=== PATIENT | male | born 1935 | race Caucasian/White ===

== ENCOUNTER → 2020-07-18 10:55 | Outpatient (BNVA) | payer MEDICARE, SELFPAY | PROVIDERS: PCP Internal Medicine; Visit Provider Internal Medicine Pulmonary Disease | DX: C34.91 Malignant neoplasm of unspecified part of right bronchus or lung (principal); C34.92 Malignant neoplasm of unspecified part of left bronchus or lung; Z87.891 Personal history of nicotine dependence | CPT/HCPCS: 99213 ==

== ENCOUNTER 2020-07-20 08:45 | Day surgery (SDC) | payer MEDICARE, SELFPAY ==
[2020-07-19 12:47] VITALS: BMI 29.0
--- NOTE | 2020-07-19 13:42 | P.CONAN_ITS ---
Documented by User: Zenaida Rizo 07/19/20 13:47 HPI - Anesthesia Eval Consult details Narrative: 85yo M for EBUS for tissue sampling: Small Cell lung cancer New onset A fib, see by cardiology, no OAC d/t bleeding risk/hemoptysis. ECHO pending. [facility] Past Medical History Medical History Anemia Atrial fibrillation Atrial fibrillation by electrocardiogram Small cell lung cancer Family History Family History Father Heart attack Other Family hx of ALS (amyotrophic lateral sclerosis) Social History Social History Smoking Status: Former smoker Use of substances other than those prescribed or required for medical reasons: Unknown Advance Directives: No Advance Directives Information Provided: Yes Meds Allergies Allergy/AdvReac Type Severity Reaction Status Date / Time No Known Allergies Allergy Verified 07/18/20 11:06 [No Known Allergies*] Home Medications Medication Instructions Recorded Confirmed Type ferrous sulfate 324 mg PO BID 07/11/20 07/12/20 History ondansetron HCl [Zofran] 8 mg PO Q8H PRN 07/11/20 07/12/20 History albuterol sulfate 90 mcg/actuation 2 puff INHALATION Q4H PRN 07/18/20 History aerosol inhaler mupirocin 2 % topical ointment TOPICAL BID 07/18/20 History Exam Exam Date and Time: July 19, 2020 1342 Height,Weight and Vital Signs: Height 5 ft 8 in Weight 86.636 kg Pertinent Lab Results Pertinent Lab Results: Laboratory Tests 07/11/20 07/11/20 09:18 09:19 WBC 9.5 Hgb 10.7 L Hct 34.1 L Plt Count 243 Sodium 142 Potassium 3.8 Chloride 106 Carbon Dioxide 25 BUN 15 Creatinine 0.93 Narrative Narrative: EKG 07/12/20: atrial fibrillation at 98/Min; PVC versus aberrant conduction. Assessment and Plan Assessment Anesthesia Assessment: Chart Reviewed Documented by User: Alis Walker 07/20/20 10:14 PMFSH Past Medical History Medical History Anemia Atrial fibrillation Atrial fibrillation by electrocardiogram Small cell lung cancer Family History Family History Father Heart attack Other Family hx of ALS (amyotrophic lateral sclerosis) Social History Social History Smoking Status: Former smoker Use of substances other than those prescribed or required for medical reasons: Unknown Advance Directives: No Advance Directives Information Provided: Yes Meds Allergies Allergy/AdvReac Type Severity Reaction Status Date / Time No Known Allergies Allergy Verified 07/18/20 11:06 [No Known Allergies*] Home Medications Medication Instructions Recorded Confirmed Type ferrous sulfate 324 mg PO BID 07/11/20 07/12/20 History ondansetron HCl [Zofran] 8 mg PO Q8H PRN 07/11/20 07/12/20 History albuterol sulfate 90 mcg/actuation 2 puff INHALATION Q4H PRN 07/18/20 History aerosol inhaler mupirocin 2 % topical ointment TOPICAL BID 07/18/20 History Exam Airway Mallampati Class: II TM Dist: >3cm Neck ROM: Limited Denture: Upper and Lower Assessment and Plan Assessment Anesthesia Assessment: Anesthesia Plan Discussed and Chart Reviewed Final Anesthetic Review ASA Class: III Final Preanesthetic Review: No Changes in Pt Med Stat, Meds/Allgs Chart Reviewed, Consent Obtained/Reviewed and Anes Risks/Benef Reviewed Patient Risk: Intermediate Procedure Risk: Intermediate Assessment/Block/Sedation in SS: Assess/Block/Sedation-SS Anesthetic Plan Anesthetic Plan: GA Disposition: Standard PACU
[2020-07-20] VITALS (7 sets, daily range): BP systolic 110–131; BP diastolic 60–87; PULSE 90–118; RESP 16–18; TEMP 36.1–36.7; O2SAT 95–100
--- NOTE | 2020-07-20 09:44 | MHC.SHP ---
Pre-Procedural Eval Section A The patient is an INPATIENT: No The History & Physical has been completed within 30 days and I have reviewed it.: Yes Section B Chief Complaint: Lung Cancer Allergies: Allergies Allergy/AdvReac Type Severity Reaction Status Date / Time No Known Allergies Allergy Verified 07/18/20 11:06 [No Known Allergies*] Plan Diagnosis/Plan: Unchanged Patient has been examined and remains a candidate for the planned procedure
--- NOTE | 2020-07-20 10:17 | PC.NURSE ---
PT ASKING FOR RIGHT CHEST PORT TO BE ACCESSED. HAD BEEN PUT IN [address] HAMMOND AND OK'D TO ACCESS. RT CHEST PORT ACCESSED WITHOUT DIFFICULTIES AND ANESTHESIA AWARE.
--- NOTE | 2020-07-20 10:42 | HO.ANESPROP2 ---
[facility] Past Medical History Medical History Anemia Atrial fibrillation Atrial fibrillation by electrocardiogram Small cell lung cancer Family History Family History Father Heart attack Other Family hx of ALS (amyotrophic lateral sclerosis) Social History Social History Smoking Status: Former smoker Use of substances other than those prescribed or required for medical reasons: Unknown Advance Directives: No Advance Directives Information Provided: Yes Meds Allergies Allergy/AdvReac Type Severity Reaction Status Date / Time No Known Allergies Allergy Verified 07/18/20 11:06 [No Known Allergies*] Home Medications Medication Instructions Recorded Confirmed Type ferrous sulfate 324 mg PO BID 07/11/20 07/12/20 History ondansetron HCl [Zofran] 8 mg PO Q8H PRN 07/11/20 07/12/20 History albuterol sulfate 90 mcg/actuation 2 puff INHALATION Q4H PRN 07/18/20 History aerosol inhaler mupirocin 2 % topical ointment TOPICAL BID 07/18/20 History Exam Exam Date and Time: July 20, 2020 1042 Height,Weight and Vital Signs: Height 5 ft 8 in Weight 86.636 kg Last Vital Signs Temp 98.1 F 07/20/20 09:34 Pulse 118 H 07/20/20 09:34 Resp 18 07/20/20 09:34 BP 131/76 07/20/20 09:34 Pulse Ox 99 07/20/20 09:34 Airway Mallampati Class: II TM Dist: >3cm Neck ROM: Full Denture: Upper and Lower Assessment and Plan Assessment Anesthesia Assessment: Anesthesia Plan Discussed and Chart Reviewed Final Anesthetic Review NPO: Yes ASA Class: III Final Preanesthetic Review: No Changes in Pt Med Stat, Meds/Allgs Chart Reviewed, Consent Obtained/Reviewed and Anes Risks/Benef Reviewed Patient Risk: Intermediate Procedure Risk: Low Assessment/Block/Sedation in SS: Assess/Block/Sedation-SS Anesthetic Plan Anesthetic Plan: GA Disposition: Standard PACU
--- NOTE | 2020-07-20 11:29 | W.PM.OPN ---
Operative Note Operative Note Narrative: Preoperative diagnosis: lung cancer Postoperative diagnosis: same Procedure: Flexible bronchoscopy performed via endotracheal tube with patient intubated for procedure under general anesthesia. Bronchoscope advanced through the tracheobronchial tree with identification of right upper lobe bronchus obstruction with heart secretions and malignant looking tissue. Endobronchial forceps biopsies sample obtained at the obstruction side with some bleeding. Bleeding controlled with cold saline lavage. After that bronchoscope was changed to endobronchial ultrasound bronchoscope and subcarinal lymph node ( station 7) was sampled with EBUS needle with the samples noted to have lymphoid and malignant looking tissue on on-site cytology. After obtaining EBUS guided lymph node samples, endoscopic ultrasound altered scope was switched again to conventional bronchoscope for tracheobronchial tree surveillance with no active bleeding noted. Biopsy samples sent for further pathological examination. Patient tolerated the procedure well and was transferred to PACU after the procedure.
--- NOTE | 2020-07-20 12:46 | HO.POSTANES ---
Post Anesthesia Evaluation Post Anesthesia Evaluation Vital Signs: Vital Signs Temp Pulse Resp BP Pulse Ox 07/20/20 12:10 97.2 F 90 16 126/66 95 07/20/20 11:56 95 16 117/60 100 07/20/20 11:41 105 H 16 114/69 99 07/20/20 11:36 105 H 17 120/68 98 07/20/20 11:31 105 H 17 116/64 96 07/20/20 11:26 97.0 F 108 H 16 110/87 97 07/20/20 09:34 98.1 F 118 H 18 131/76 99 Anesthesia: General (tiva) Mental Status: Awake Pain Control: Satisfactory Nausea/Vomiting: None Hydration: Adequate Anesthesia-Related Issues: No Anes. Related Issues
== END 2020-07-20 12:51 | disposition home or self-care (01) ==
PROVIDERS: PCP Internal Medicine; Visit Provider Internal Medicine Pulmonary Disease
PROC: (CPT 31628; principal; 2020-07-20 10:30)
DX: C34.91 Malignant neoplasm of unspecified part of right bronchus or lung (principal); C77.1 Secondary and unspecified malignant neoplasm of intrathoracic lymph nodes; D64.9 Anemia, unspecified; I48.91 Unspecified atrial fibrillation; Z79.899 Other long term (current) drug therapy; Z82.49 Family history of ischemic heart disease and other diseases of the circulatory system; Z82.0 Family history of epilepsy and other diseases of the nervous system; Z87.891 Personal history of nicotine dependence
CPT/HCPCS: 31628; 31652; 88172; 88173; 88177; 88305; 88341; 88342; J1642; J3010

== ENCOUNTER → 2020-07-24 13:53 | Outpatient (REF) | payer MEDICARE, SELFPAY ==
--- NOTE | 2020-07-24 13:56 | ECG_ITS ---
Hook-up date: 2020-07-24 14:05:00 Duration: 24:22:00 Test Indications: Unspecified Atrial Fibrillation Medications: 524801 QRS complexes 1691 Ventricular ectopics which represent 1 % of total QRS comp. * Supraventricular ectopics which represent % of total QRS comp. * Paced QRS complexs which represent % of total QRS comp. VENTRICULAR ECTOPY 1685 Isolated 9 Bigeminal Cycles 92 Couplets 16 Runs 57 Beats in Runs 6 Beats LONGEST at 206 BPM at 16:20:51 2020-07-24 3 Beats FASTEST at 333 BPM at 12:20:28 2020-07-25 SUPRAVENTRICULAR ECTOPY * Isolated * Couplets * Runs * Beats in Runs * Beats LONGEST at * BPM at :: -- * Beats FASTEST at * BPM at :: -- HEART RATES 73 MIN at 00:08:04 2020-07-25 110 AVG 214 MAX at 14:21:04 2020-07-24 LONGEST RR 1.2160 secs at 20:35:25 2020-07-24 S-T LEVELS Channel 1 - 128 mm at 14:05:00 2020-07-24 - 128 mm at 14:05:00 2020-07-24 Channel 2 - 128 mm at 14:05:00 2020-07-24 - 128 mm at 14:05:00 2020-07-24 Channel 3 - 128 mm at 03:32:41 -- - 128 mm at 03:32:41 Underlying rhythm is atrial fibrillation; Average ventricular rate 110/min (range 73-214/min); Frequent rapid ventricular rate with atrial fibrillation; Very brief runs of ventricular ectopy vs aberrantly conducted beats; Patient diary not available for review. Referred By: Erika Yepez Overread By: ERIKA YEPEZ
== END ==
LOC: HO.CARD 13:53
PROVIDERS: Visit Provider Internal Medicine
DX: I48.91 Unspecified atrial fibrillation (principal)
CPT/HCPCS: 93225; 93226

== ENCOUNTER → 2020-07-26 14:58 | Outpatient (REF) | payer MEDICARE, SELFPAY ==
--- NOTE | 2020-07-26 15:03 | CA_ITS ---
Transthoracic Echocardiogram Patient (Last, First, Middle): Raul Martinez J Gender: Male Date of : 1935 Age: 85 Procedure Date: 07/26/2020 Procedure Type: Transthoracic Echocardiogram Location: OP Height: 172.72 cm Weight: 86.18 kg BSA: 2.00 m2 Heart Rate: bpm BP: 138 / 70 mmHg Consulting Psychiatrist: Referring MD: Mg Bailey MD Symptoms: afib Study Quality: Good ECG Rhythm: Atrial Fibrillation Conclusions: - Normal left ventricular size and systolic function. - Normal right ventricular cavity size and systolic function. - The left atrium is mildly dilated. - There is moderate mitral annular calcification. There is mild mitral valve regurgitation. There is no mitral valve stenosis. The calculated mitral valve area by pressure half time is 3.93 cm2. - Normal right atrial pressure. There is no evidence of pulmonary hypertension. - There is mild dilatation of the ascending aorta. Findings Left Ventricle Normal left ventricular size and systolic function. There is mildly increased left ventricular wall thickness. The visually estimated ejection fraction is between 60-65%. There is no evidence of regional wall motion abnormalities. Diastolic function is indeterminate on the basis of available data. Right Ventricle Normal right ventricular cavity size and systolic function. Atria The left atrium is mildly dilated. There is no evidence of interatrial shunt by color Doppler. Aortic Valve There is a normal trileaflet aortic valve. There is mild calcification of the aortic valve. There is no aortic valve stenosis. There is no aortic valve regurgitation. Mitral Valve There is moderate mitral annular calcification. There is mild mitral valve regurgitation. There is no mitral valve stenosis. The calculated mitral valve area by pressure half time is 3.93 cm2. Pulmonic Valve The pulmonic valve is likely normal. Tricuspid Valve Normal tricuspid valve structure and function. There is trace tricuspid valve regurgitation. Normal right atrial pressure. There is no evidence of pulmonary hypertension. Great Vessels There is mild dilatation of the ascending aorta. The visualized portions of the pulmonary artery and branches are normal. Venous The inferior vena cava is normal in size and collapses greater than 50% with inspiration. Pericardium/Pleural There is no evidence of pericardial effusion. Prior Study Comparison No prior study available for comparison. Measurements 2D Linear Measurements IVSd: 1.30 0.6-0.9/0.6-1.0 cm LVIDd: 4.39 3.9-5.3/4.2-5.9 cm LVIDd Index: 2.20 2.4-3.2/2.2-3.1 cm/m2 LVIDs: 2.94 2.0-3.6 cm LVPWd: 1.33 0.7-1.1 cm Ao Root: 3.30 2.1-3.5 cm LA Diam: 3.90 2.7-3.8/3.0-4.0 cm LAIDs Index: 1.95 1.5-2.3 cm/m2 LV Mass: 271.80 67-162/88-224 g LV Mass Index: 135.90 43-95/49-115 g/m2 LVOT Diam: 2.00 3.0+(-)1.3 cm Mitral Valve MV VTI: 0.36 MV Pk Camron: 1.90 MV Mn Camron: 1.05 MV Pk Grad: 14.00 MV Mn Grad: 6.00 MV Pk E: 1.51 MV Decel Time: 190.00 E'Lateral: 10.30 E'Medial: 10.70 E/E' Med: 14.10 E/E' Lat: 14.70 PHT: 56.00 MVA PHT: 3.93 MVA Continuity: 1.34 Decel Gilliam: 7.93 Aortic Valve AoV Pk Camron: 1.32 AoV Mn Camron: 0.95 AoV VTI: 0.30 AoV Pk Grad: 7.00 Aov Mn Grad: 4.00 TR[place]AD Cont.VTI: 1.62 LVOT LVOT Pk Camron: 0.96 LVOT Mn Camron: 0.74 LVOT VTI: 0.15 LVOT Pk Grad: 4.00 LVOT Mn Grad: 2.00 LVOT Diam: 2.00 LVOT Area: 3.14 Diastolic Function MV Pk E: 1.51 E'Medial: 10.70 E/E' Med: 14.10 E' Laterial: 10.30 E/E' Lat: 14.70 Tricuspid Valve TR Pk Camron: 2.29 TR Pk Grad: 21.00 RVSP: 24.00 Great Vessels Aorta Ao Root-2D: 3.30 2.0-3.7 cm Ao Asc: 3.60 2.1-3.4 cm Pulmonary Valve PV Pk Camron: 0.76 Peak PV Grad: 2.00 Updated in Other Vendor System with Status of Final Rich Cooney MD electronically signed on 07/27/2020 2:13:10 PM with status of Final
== END ==
LOC: HO.CARD 14:58
PROVIDERS: Visit Provider Internal Medicine
DX: I48.91 Unspecified atrial fibrillation (principal)
CPT/HCPCS: 93306

== ENCOUNTER → 2020-07-28 10:15 | Outpatient (BNVA) | payer MEDICARE, SELFPAY | PROVIDERS: PCP Internal Medicine; Visit Provider Nurse Practitioner Family | DX: I89.1 Lymphangitis (principal); C34.90 Malignant neoplasm of unspecified part of unspecified bronchus or lung; Z79.899 Other long term (current) drug therapy; Z87.891 Personal history of nicotine dependence | CPT/HCPCS: 99214 ==

== ENCOUNTER → 2020-08-11 10:16 | Outpatient (BNVA) | payer MEDICARE, SELFPAY | PROVIDERS: PCP Internal Medicine; Referring Provider Internal Medicine; Visit Provider Nurse Practitioner Family | DX: I48.91 Unspecified atrial fibrillation (principal); C34.90 Malignant neoplasm of unspecified part of unspecified bronchus or lung | CPT/HCPCS: 99212 ==

== ENCOUNTER 2020-08-30 11:49 | Outpatient (REF) | payer MEDICARE, SELFPAY ==
--- NOTE | 2020-08-30 11:51 | CT_ITS ---
EXAMINATION: CT CHEST WITH CONTRAST CLINICAL INFORMATION: Lung cancer. Assess response to treatment. COMPARISON: Previous chest CT scans most recent June 2020 TECHNIQUE: Multidetector volumetric CT imaging of the chest was obtained after the administration of 65 mL of Omnipaque 350 intravenous contrast without immediate adverse reactions. Axial MIP volume rendering provided. Sagittal and coronal reformatted images were obtained. This CT examination was performed using dose optimization techniques as appropriate, variously including the following: *Automated exposure control *Adjustment of mA and/or kV according to patient size (this includes techniques or standardized protocols for targeted exams where dose is matched to indication/reason for exam; i.e. extremities or head) *Use of iterative reconstruction technique DLP: 147 mGy-cm FINDINGS: LUNGS: There is evidence of emphysema. There is volume loss of the right upper lobe. There is interval decrease in masslike consolidation in the apex of the right upper lobe. More inferior areas of consolidation in the right upper lobe appear decreased as well. There is again question of central mass in the right upper lobe in the right upper lobe bronchus. This area does not appear appreciably changed. The central lobulated mass in the left lung involving the left upper and left lower lobes appears increased in size. This measures 7.5 x 11 cm in transverse and longitudinal dimension coronal reconstructed image 48 compared to 6.2 x 8.8 cm coronal reconstructed image 47. This measures 9 cm in AP dimension sagittal reconstructed image 26 compared to 7.8 cm coronal reconstructed image 32. It is again lobulated in shape and involves the left upper and left lower lobes. MEDIASTINUM: There are enlarged mediastinal lymph nodes that appear increased in size. Largest lymph node is a left paratracheal lymph node that measures 3.2 x 4.2 cm compared to 2.8 x 3.2 cm. There are enlarged subcarinal lymph nodes that measures 3 x 3.5 cm compared to 2.8 x 3.2 cm in the midline, 2.6 x 3.6 cm compared to 2 x 2.4 cm on the right and 2 x 2.4 cm compared to 1.2 x 2 cm on the left. There is bilateral hilar adenopathy that appears increased. Largest left hilar lymph node measures 2.1 x 2.6 cm coronal reconstructed image 48 compared to 1.3 x 2.1 cm coronal reconstructed image 46. Largest left hilar lymph node measures 1.3 x 1.6 cm compared to 1 x 1.2 cm. The heart does not appear enlarged. There is coronary artery calcification. There is atherosclerotic disease of the aorta. There is no pericardial effusion. The thyroid gland is unremarkable. There is a right jugular port with tip projecting over the SVC. PLEURA: There are bilateral pleural effusions the right pleural effusion is small and appears slightly decreased from previous exam. The left pleural effusion is moderate to large and appears increased from previous exam. AXILLA: The enlarged right axillary lymph node appears increased in size and measures 3.1 x 4.6 cm compared to 2.3 x 3.7 cm on previous exam. UPPER ABDOMEN: There is probable low-attenuation lesion in the spleen. This measures 2.2 cm axial image 65 series 3 and is increased in size from previous exams. There are multiple small low-attenuation liver lesions. These do not appear appreciably changed. The largest measures 1.3 cm in the central right lobe of the liver with peripheral calcification. It is uncertain whether these represent solid or cystic lesions. OSSEOUS STRUCTURES: There are degenerative changes of the spine. No fracture or bone lesion is seen. CT/CT chest w con IMPRESSION: Interval increase in size in the lobulated central left lung mass involving the left upper and lower lobes interval. Increase in mediastinal and bilateral hilar lymphadenopathy. Masslike consolidation in the right upper lobe appears decreased. The questioned central mass in the right upper lobe bronchus does not appear appreciably changed. Small right pleural effusion decreased from previous exam. Increasing now moderate to large left pleural effusion. Interval increase in right axillary lymph node. Increasing splenic lesion. Stable liver lesions.
[2020-08-30] MEDS: iohexoL 350 MG/ML 100 ML INFUS..BTL 75 ML IV (12:25)
== END 2020-08-30 11:50 | disposition home or self-care (01) ==
LOC: HO.CT 11:49
PROVIDERS: Visit Provider Internal Medicine
DX: C34.90 Malignant neoplasm of unspecified part of unspecified bronchus or lung (principal); I48.91 Unspecified atrial fibrillation
CPT/HCPCS: 71260; 93005; 99212; Q9967

== ENCOUNTER → 2020-09-20 10:06 | Outpatient (BNVA) | payer MEDICARE, SELFPAY | PROVIDERS: PCP Internal Medicine; Visit Provider Nurse Practitioner Family | DX: I48.91 Unspecified atrial fibrillation (principal); C34.90 Malignant neoplasm of unspecified part of unspecified bronchus or lung | CPT/HCPCS: 99212 ==

== ENCOUNTER 2020-09-25 10:00 | Outpatient (RCR) | payer MEDICARE, SELFPAY ==
[2020-07-07 16:28] VITALS: BMI 28.9
[2020-07-11 09:22] LABS: MANUAL DIFF FLAG NO
[2020-07-11 09:34] LABS: Basophils Absolute Auto 0.1 X10*3/uL (0.0-0.2); Basophils Percent Auto 1.3 % (0-2); Eosinophils Absolute Auto 0.1 X10*3/uL (0.0-0.4); Hematocrit 34.1 % (42-52); Hemoglobin 10.7 g/dl (14.0-18.0); Imm Gran Abs Auto 0.11 X10*3/uL (0.00-0.03); Imm Gran Pct Auto 1.2 % (0.0-0.4); Lymphocytes Absolute Auto 1.6 X10*3/uL (1.2-4.9); Mean Corpuscular HGB Conc 31.4 g/dl (31.0-36.0); Mean Corpuscular Hemoglobin 28.5 pg (27.0-33.0); Mean Corpuscular Volume 90.7 fL (80-98); Mean Platelet Volume 8.2 fL (9.4-12.4); Monocytes Absolute Auto 1.2 X10*3/uL (0.1-1.2); Monocytes Percent Auto 12.7 % (2-11); Neutrophils Absolute Auto 6.4 X10*3/uL (2.0-8.3); Neutrophils Percent Auto 66.8 % (45-73); Platelet Count 243 X10*3/uL (160-400); Red Blood Count 3.76 X10*6/uL (4.60-5.80); Red Cell Distribution Width 26.1 % (11.0-16.0); White Blood Count 9.5 X10*3/uL (4.8-10.8)
[2020-07-11 09:37] VITALS: BMI 29.2
[2020-07-11 09:38] VITALS: BP 135/64; PULSE 114; RESP 20; TEMP 36.9; O2SAT 96
[2020-07-11 09:57] LABS: Alanine Aminotransferase 7 U/L (0-40); Albumin Level 3.7 g/dL (3.5-5.0); Alkaline Phosphatase 83 U/L (39-117); Anion Gap 15 (12-20); Aspartate Amino Transferase 10 U/L (5-37); Bilirubin Total 0.4 mg/dL (0.0-1.0); Blood Urea Nitrogen 15 mg/dL (9-16); Calcium 9.1 mg/dL (8.4-10.2); Carbon Dioxide 25 mmol/L (22-29); Chloride 106 mmol/L (96-108); Creatinine Clr Calc Pharmacy 64.6; Estimated Glomerular Filt Rate > 60; Glucose Random 156 mg/dL (60-115); Potassium 3.8 mmol/l (3.3-5.1); Sodium 142 mmol/L (135-145)
[2020-07-11] MEDS: ondansetron HCL/NS 16 MG/50 ML PIGGYBACK 200 MG IV (10:30)
[2020-07-11] MEDS: dexAMETHasone sod phosphate/NS 12 MG/50 ML PIGGYBACK 100 MG IV (10:31)
[2020-07-11] MEDS: Fosaprepitant Dimeglumine 150 MG in 0.9 % Sodium Chloride 145 ML 300 MG IV (11:27)
[2020-07-11] MEDS: Furosemide 20 MG TABLET PO (12:37)
[2020-07-11] MEDS: Atezolizumab 1,200 MG in 0.9 % Sodium Chloride 250 ML 540 MG IV (12:42)
--- NOTE | 2020-07-11 13:00 | MHC.HEMONC ---
20mg po lasix given for bilat leg edema and sob with actively
--- NOTE | 2020-07-11 13:02 | MHC.HEMONC ---
pt seeing cardio next week
[2020-07-12 12:42] VITALS: BP 124/65; PULSE 112; RESP 20; TEMP 36.4; O2SAT 98; BMI 29.5
[2020-07-12] MEDS: dexAMETHasone sod phosphate/NS 12 MG/50 ML PIGGYBACK 100 MG IV (12:56)
[2020-07-13 12:50] VITALS: BP 162/72; PULSE 103; RESP 20; TEMP 36.2; O2SAT 99; BMI 29.5
[2020-07-13] MEDS: ondansetron HCL/NS 16 MG/50 ML PIGGYBACK 200 MG IV (13:17)
[2020-07-13] MEDS: dexAMETHasone sod phosphate/NS 12 MG/50 ML PIGGYBACK 200 MG IV (13:52)
[2020-07-13] MEDS: Heparin Sodium,Porcine Flush 500 UNIT/5 ML SYRINGE IVFLUSH (15:22)
--- NOTE | 2020-07-14 09:46 | MHC.HEMONC ---
RN called patient and informed him of appt with Dr. Carbajal on 07/18/20 at 11am. Pt verbalized understanding and requested RN to call his daughter Willow to inform her as well. RN spoke with Willow and informed her of appt, as well, she verbalized understanding.
[2020-07-14 15:09] VITALS: BMI 29.5
[2020-07-14 15:10] VITALS: BP 146/69; PULSE 96; TEMP 36.2; O2SAT 98
--- NOTE | 2020-07-14 15:17 | MHC.HEMONC ---
Patient here for Neulasta injection today. Tolerated well. Has appt with Dr. Carbajal 07/18/20. Patient and son aware.
[2020-08-01 11:21] VITALS: BP 124/58; PULSE 102; RESP 20; TEMP 36.2; O2SAT 95
[2020-08-01 11:22] VITALS: BMI 28.9
[2020-08-01 11:52] LABS: MANUAL DIFF FLAG NO
[2020-08-01 12:05] LABS: Basophils Absolute Auto 0.1 X10*3/uL (0.0-0.2); Eosinophils Absolute Auto 0.1 X10*3/uL (0.0-0.4); Eosinophils Percent Auto 0.7 % (0-4); Hematocrit 32.9 % (42-52); Hemoglobin 10.3 g/dl (14.0-18.0); Imm Gran Abs Auto 0.09 X10*3/uL (0.00-0.03); Lymphocytes Absolute Auto 1.5 X10*3/uL (1.2-4.9); Lymphocytes Percent Auto 16.4 % (20-40); Mean Corpuscular HGB Conc 31.3 g/dl (31.0-36.0); Mean Corpuscular Hemoglobin 29.3 pg (27.0-33.0); Mean Corpuscular Volume 93.7 fL (80-98); Mean Platelet Volume 8.4 fL (9.4-12.4); Monocytes Absolute Auto 1.4 X10*3/uL (0.1-1.2); Monocytes Percent Auto 15.5 % (2-11); Neutrophils Percent Auto 65.4 % (45-73); Platelet Count 256 X10*3/uL (160-400); Red Blood Count 3.51 X10*6/uL (4.60-5.80); Red Cell Distribution Width 22.6 % (11.0-16.0); White Blood Count 9.2 X10*3/uL (4.8-10.8)
[2020-08-01 12:29] LABS: Alanine Aminotransferase 7 U/L (0-40); Albumin Level 3.5 g/dL (3.5-5.0); Alkaline Phosphatase 78 U/L (39-117); Anion Gap 13 (12-20); Aspartate Amino Transferase 12 U/L (5-37); Bilirubin Total 0.5 mg/dL (0.0-1.0); Blood Urea Nitrogen 9 mg/dL (9-16); Calcium 8.9 mg/dL (8.4-10.2); Carbon Dioxide 26 mmol/L (22-29); Chloride 104 mmol/L (96-108); Creatinine Clr Calc Pharmacy 74.7; Estimated Glomerular Filt Rate > 60; Glucose Random 142 mg/dL (60-115); Potassium 3.7 mmol/l (3.3-5.1); Sodium 139 mmol/L (135-145); Total Protein 6.9 g/dL (6.5-8.0)
[2020-08-01] MEDS: Acetaminophen 325 MG TABLET 650 MG PO (12:46)
[2020-08-01] MEDS: diphenhydrAMINE HCL 25 MG TABLET PO (12:47)
[2020-08-01] MEDS: Heparin Sodium,Porcine Flush 500 UNIT/5 ML SYRINGE IVFLUSH (12:47)
[2020-08-01] MEDS: Famotidine/PF 20 MG/2 ML VIAL IVPUSH (12:47)
[2020-08-01 13:10] LABS: Digoxin < 0.3 ng/mL (0.8-2.0)
[2020-08-01] MEDS: Atezolizumab 1,200 MG in 0.9 % Sodium Chloride 250 ML 540 MG IV (13:31)
[2020-08-01 15:42] LABS: Glucose Urine UA NEG (NEG); Leukocyte Esterase Urine NEG (NEG); Nitrite Urine NEG (NEG); PH 6.5 (5.0-8.0); Urine Blood NEG (NEG); Urine Ketones NEG (NEG); Urine Protein NEG (NEG-TRACE)
[2020-08-01 15:48] LABS: Appearance Urine CLEAR; Color Urine YELLOW
[2020-08-22 10:56] VITALS: BMI 28.3
[2020-08-22 11:16] LABS: MANUAL DIFF FLAG NO
[2020-08-22 11:20] LABS: Basophils Absolute Auto 0.1 X10*3/uL (0.0-0.2); Eosinophils Absolute Auto 1.1 X10*3/uL (0.0-0.4); Eosinophils Percent Auto 13.2 % (0-4); Hematocrit 32.9 % (42-52); Hemoglobin 10.3 g/dl (14.0-18.0); Imm Gran Abs Auto 0.02 X10*3/uL (0.00-0.03); Imm Gran Pct Auto 0.2 % (0.0-0.4); Lymphocytes Absolute Auto 1.5 X10*3/uL (1.2-4.9); Lymphocytes Percent Auto 18.5 % (20-40); Mean Corpuscular HGB Conc 31.3 g/dl (31.0-36.0); Mean Corpuscular Hemoglobin 28.8 pg (27.0-33.0); Mean Corpuscular Volume 91.9 fL (80-98); Mean Platelet Volume 8.4 fL (9.4-12.4); Monocytes Absolute Auto 0.7 X10*3/uL (0.1-1.2); Monocytes Percent Auto 8.3 % (2-11); Neutrophils Absolute Auto 4.8 X10*3/uL (2.0-8.3); Neutrophils Percent Auto 58.8 % (45-73); Platelet Count 174 X10*3/uL (160-400); Red Blood Count 3.58 X10*6/uL (4.60-5.80); Red Cell Distribution Width 15.9 % (11.0-16.0); White Blood Count 8.2 X10*3/uL (4.8-10.8)
[2020-08-22 11:38] VITALS: BP 113/58; PULSE 104; RESP 18; TEMP 36.6; O2SAT 97
[2020-08-22 11:52] LABS: Alanine Aminotransferase 9 U/L (0-40); Albumin Level 3.3 g/dL (3.5-5.0); Alkaline Phosphatase 70 U/L (39-117); Anion Gap 13 (12-20); Aspartate Amino Transferase 14 U/L (5-37); Bilirubin Total 0.5 mg/dL (0.0-1.0); Blood Urea Nitrogen 15 mg/dL (9-16); Calcium 8.8 mg/dL (8.4-10.2); Carbon Dioxide 25 mmol/L (22-29); Chloride 104 mmol/L (96-108); Creatinine Clr Calc Pharmacy 65.1; Estimated Glomerular Filt Rate > 60; Glucose Random 150 mg/dL (60-115); Potassium 3.6 mmol/l (3.3-5.1); Sodium 138 mmol/L (135-145); Total Protein 7.7 g/dL (6.5-8.0)
[2020-08-22] MEDS: diphenhydrAMINE HCL 25 MG TABLET PO (12:09)
[2020-08-22] MEDS: Acetaminophen 325 MG TABLET 650 MG PO (12:10)
[2020-08-22] MEDS: Famotidine/PF 20 MG/2 ML VIAL IVPUSH (12:13)
[2020-08-22] MEDS: Atezolizumab 1,200 MG in 0.9 % Sodium Chloride 250 ML 540 MG IV (12:30)
--- NOTE | 2020-08-22 12:35 | PM.HEMONCPN ---
Medical Summary - Medical Summary Chief complaint: Follow-up and scheduled treatment Medical Summary: Diagnosis: Extensive stage small cell lung cancer April 2020 Right axillary lymph node measuring 3.1 x 2.2 x 3.1 cm was biopsied, pathology-metastatic small-cell carcinoma immunostains for sarah cytokeratin, CD 45, synaptophysin, chromogranin and Ki 67 performed. Flow cytometry polytypic B-cells, Paucicellular limited study. PET-CT performed 04/24/2020 at [facility] revealed large FDG avid left upper lobe lung mass SUV 29.5, multifocal airspace opacity within right upper lobe, abnormal FDG active multiple mediastinal lymph nodes with SUV ranging from 12.6-32.6. Focal increased FDG activity in right axillary lymph node SUV 26.7, abnormal FDG uptake within spleen SUV 16.909. No osseous metastatic disease. MRI brain on 05/08/2020 with contrast was negative for occult brain metastasis. Patient started palliative chemotherapy with Carboplatinum AUC 5+ etoposide and atezolizumab on 05/09/2020. He underwent CT chest with contrast on 07/03/2020 after 3 cycles. This showed decrease in size of left upper lobe mass but increase in size of multifocal right upper lobe mass as well as slight increase in lymphadenopathy. Interval History Interval history: Patient is here for scheduled treatment and follow-up. Overall he is doing about the same. He denies any worsening of his chronic nonproductive cough or baseline exertional shortness of breath. He denies pleuritic chest pain, no fever or chills. He denies diarrhea or change in bowel habits. His appetite is somewhat low but he is eating at least 3 meals a day. He denies any significant weight loss. Review of Systems - Constitutional Reports as per HPI, Reports no additional constitutional complaints - Cardiovascular Reports no additional cardiovascular complaints, Denies fainting, Denies fast heart rate, Denies irregular heart rhythm - Respiratory Reports no additional respiratory complaints - Gastrointestinal Reports no additional gastrointestinal complaints ON LICENSE OF [facility] Medical History: Medical History (Last Reviewed 08/11/20 @ 10:50 by ADELAIDA Spence) Anemia Atrial fibrillation Atrial fibrillation by electrocardiogram Small cell lung cancer Family History: Family History (Last Reviewed 08/11/20 @ 10:50 by ADELAIDA Spence) Father Heart attack Other Family hx of ALS (amyotrophic lateral sclerosis) Smoking status: Former smoker Alcohol intake frequency: does not drink Oncology Screenings - ECOG Performance Status ECOG Performance Status: 1 Home Medications and Allergies Current Medications: Current Medications Generic Name Dose Route Start Last Admin Trade Name Nayeli PRN Reason Stop Dose Admin Acetaminophen 650 mg 08/22/20 00:00 08/22/20 12:10 Acetaminophen 325 Mg Tablet PO 08/22/20 23:59 650 mg ONCE BILL Administration Diphenhydramine HCl 25 mg 08/22/20 00:00 08/22/20 12:09 Diphenhydramine Hcl 25 Mg Tablet PO 08/22/20 23:59 25 mg ONCE BILL Administration Famotidine 20 mg 08/22/20 00:00 08/22/20 12:13 Famotidine/Pf 20 Mg/2 Ml Vial IVPUSH 08/22/20 23:59 20 mg ONCE BILL Administration Heparin Sodium (Porcine) 500 unit 08/22/20 00:00 Heparin Sodium,Porcine Flush 500 Unit/5 Ml Syringe IVFLUSH 08/22/20 23:59 ONCE BILL Ondansetron HCl 16 mg in 50 mls @ 200 mls/hr 07/13/20 13:15 07/13/20 13:32 Zofran IV Infused ONCE BILL Infusion Atezolizumab 1,200 mg/ Sodium 270 mls @ 540 mls/hr 08/22/20 00:00 08/22/20 12:30 Chloride IV 08/22/20 23:59 540 mls/hr ONCE BILL Administration Ondansetron HCl 8 mg 08/22/20 00:00 08/22/20 12:10 Ondansetron Odt 8 Mg Tab.Rapdis TRANSLINGU 08/22/20 23:59 8 mg ONCE BILL Administration Home Medications Medication Instructions Recorded Confirmed Type ferrous sulfate 324 mg PO BID 07/11/20 08/11/20 History Allergies Allergy/AdvReac Type Severity Reaction Status Date / Time No Known Allergies Allergy Verified 07/18/20 11:06 [No Known Allergies*] Exam Vital signs: Vital Signs Temp 97.8 F 08/22/20 11:38 Pulse 104 H 08/22/20 11:38 Resp 18 08/22/20 11:38 BP 113/58 L 08/22/20 11:38 Pulse Ox 97 08/22/20 11:38 Intake & Output 08/21/20 08/22/20 08/22/20 18:59 06:59 18:59 Other: Weight 84.7 kg Weight 84.7 kg Body Mass Index 28.3 - Constitutional Present: no acute distress - Routine HEENT Exam Head: Present: normal inspection Eye: Present: EOMI - Routine Neck Exam Present: full ROM. Absent: lymphadenopathy - Routine Chest/Breast/Axilla Exam Axillae: Present: lymphadenopathy Comments: Single 2 and half to 3 cm soft palpable lymph node in right axilla. - Routine Respiratory Exam Present: CTAB. Absent: rhonchi, wheezes - Routine Cardiovascular Exam Cardiovascular: Present: S1, S2, irregular rhythm - Routine Abdominal Exam Present: normal bowel sounds, soft. Absent: organomegaly Data - Labs CBC & Chem 7: 08/22/20 11:10 08/22/20 11:10 Labs: 07/11/20 00:00 Atezolizumab [Tecentriq] 1,200 mg 0.9 % Sodium Chloride [Ns] 250 ml IV ONCE CARBOplatin [Paraplatin] 460 mg 0.9 % Sodium Chloride 250 ml IV ONCE Etoposide [Vepesid] 200 mg 0.9 % Sodium Chloride PVC Free [NS PVC Free] 500 ml IV ONCE Fosaprepitant Dimeglumine [Emend] 150 mg 0.9 % Sodium Chloride [Ns] 145 ml IV ONCE Heparin Sodium,Porcine Flush 500 unit IVFLUSH ONCE dexAMETHasone sod phosphate/NS [Decadron] 12 mg in 50 ml IV ONCE ondansetron HCL/NS [Zofran] 16 mg in 50 ml IV ONCE 07/11/20 09:18 Complete Blood Count Auto Diff Routine 07/11/20 09:19 Comprehensive Met. Panel Routine 07/11/20 10:00 Fosaprepitant Dimeglumine [Emend] 150 mg 0.9 % Sodium Chloride [Ns] 145 ml IV ONCE 07/11/20 12:01 Furosemide [Lasix] 20 mg PO ONCE ONE 07/12/20 00:00 Etoposide [Vepesid] 200 mg 0.9 % Sodium Chloride PVC Free [NS PVC Free] 500 ml IV ONCE Heparin Sodium,Porcine Flush 500 unit IVFLUSH ONCE 07/12/20 12:33 dexAMETHasone Sod Phosphate/PF [Dexamethasone 10 MG/ML Vial] 12 mg 0.9 % Sodium Chloride [Ns] 50 ml IV ONCE 07/12/20 13:00 dexAMETHasone sod phosphate/NS [Decadron] 12 mg in 50 ml IV ONCE ondansetron HCL [Zofran] 8 mg 0.9 % Sodium Chloride [Ns] 50 ml IVPUSH ONCE ondansetron HCL [Zofran] 8 mg 0.9 % Sodium Chloride [Ns] 50 ml IVPUSH ONCE 07/13/20 00:00 Etoposide [Vepesid] 200 mg 0.9 % Sodium Chloride PVC Free [NS PVC Free] 500 ml IV ONCE Heparin Sodium,Porcine Flush 500 unit IVFLUSH ONCE Pegfilgrastim Onpro [Neulasta Onpro] 6 mg SUBCUT ONCE 07/13/20 13:15 dexAMETHasone sod phosphate/NS [Decadron] 12 mg in 50 ml IV ONCE 07/14/20 15:05 Pegfilgrastim [Neulasta] 6 mg SUBCUT ONCE ONE 08/01/20 00:00 Acetaminophen [Tylenol] 650 mg PO ONCE Atezolizumab [Tecentriq] 1,200 mg 0.9 % Sodium Chloride [Ns] 250 ml IV ONCE Famotidine/PF [Pepcid/PF] 20 mg IVPUSH ONCE Heparin Sodium,Porcine Flush 500 unit IVFLUSH ONCE diphenhydrAMINE HCL [Benadryl] 25 mg PO ONCE ondansetron ODT [Zofran ODT] 8 mg TRANSLINGU ONCE 08/01/20 10:45 Carcinoembryonic Antigen Routine Complete Blood Count Auto Diff Routine Comprehensive Met. Panel Routine Digoxin Routine 08/01/20 15:20 UA and rflx microscopic Routine 08/22/20 11:10 Carcinoembryonic Antigen Routine Complete Blood Count Auto Diff Routine Comprehensive Met. Panel Routine Laboratory Last Values WBC 8.2 X10*3/uL (4.8-10.8) 08/22/20 11:10 RBC 3.58 X10*6/uL (4.60-5.80) L 08/22/20 11:10 Hgb 10.3 g/dl (14.0-18.0) L 08/22/20 11:10 Hct 32.9 % (42-52) L 08/22/20 11:10 MCV 91.9 fL (80-98) 08/22/20 11:10 MCH 28.8 pg (27.0-33.0) 08/22/20 11:10 MCHC 31.3 g/dl (31.0-36.0) 08/22/20 11:10 RDW 15.9 % (11.0-16.0) 08/22/20 11:10 Plt Count 174 X10*3/uL (160-400) D 08/22/20 11:10 MPV 8.4 fL (9.4-12.4) L 08/22/20 11:10 Immature Gran % (Auto) 0.2 % (0.0-0.4) 08/22/20 11:10 Neut % (Auto) 58.8 % (45-73) 08/22/20 11:10 Lymph % (Auto) 18.5 % (20-40) L 08/22/20 11:10 [place] % (Auto) 8.3 % (2-11) 08/22/20 11:10 Eos % (Auto) 13.2 % (0-4) H 08/22/20 11:10 Baso % (Auto) 1.0 % (0-2) 08/22/20 11:10 Neut # (Auto) 6.4 X10*3/uL (2.0-8.3) 07/11/20 09:18 Lymph # (Auto) 1.5 X10*3/uL (1.2-4.9) 08/22/20 11:10 [place] # (Auto) 0.7 X10*3/uL (0.1-1.2) 08/22/20 11:10 Eos # (Auto) 1.1 X10*3/uL (0.0-0.4) H 08/22/20 11:10 Baso # (Auto) 0.1 X10*3/uL (0.0-0.2) 08/22/20 11:10 Abs Immat Gran (auto) 0.02 X10*3/uL (0.00-0.03) 08/22/20 11:10 Absolute Neuts (auto) 4.8 X10*3/uL (2.0-8.3) 08/22/20 11:10 Absolute Nucleated RBC 0.000 X10*3/uL (0.0-0.012) 08/22/20 11:10 Nucleated RBC % (auto) 0.0 /100WBC (0.0-0.2) 08/22/20 11:10 Sodium 138 mmol/L (135-145) 08/22/20 11:10 Potassium 3.6 mmol/l (3.3-5.1) 08/22/20 11:10 Chloride 104 mmol/L (96-108) 08/22/20 11:10 Carbon Dioxide 25 mmol/L (22-29) 08/22/20 11:10 Anion Gap 13 (12-20) 08/22/20 11:10 BUN 15 mg/dL (9-16) D 08/22/20 11:10 Creatinine 0.91 mg/dL (0.5-1.4) 08/22/20 11:10 Estim Creat Clear Calc 65.1 08/22/20 11:10 Estimated GFR > 60 08/22/20 11:10 Random Glucose 150 mg/dL (60-115) H 08/22/20 11:10 Calcium 8.8 mg/dL (8.4-10.2) 08/22/20 11:10 Total Bilirubin 0.5 mg/dL (0.0-1.0) 08/22/20 11:10 AST 14 U/L (5-37) 08/22/20 11:10 ALT 9 U/L (0-40) 08/22/20 11:10 Alkaline Phosphatase 70 U/L (39-117) 08/22/20 11:10 Total Protein 7.7 g/dL (6.5-8.0) 08/22/20 11:10 Albumin 3.3 g/dL (3.5-5.0) L 08/22/20 11:10 Carcinoembryonic Ag 0.80 mg/mL D 08/22/20 11:10 Urine Color YELLOW 08/01/20 15:20 Urine Appearance CLEAR 08/01/20 15:20 Urine pH 6.5 (5.0-8.0) 08/01/20 15:20 Ur Specific [employer] 1.020 (1.005-1.025) 08/01/20 15:20 Urine Protein NEG MG/DL (NEG-TRACE) 08/01/20 15:20 Urine Glucose (UA) NEG MG/DL (NEG) 08/01/20 15:20 Urine Ketones NEG MG/DL (NEG) 08/01/20 15:20 Urine Blood NEG (NEG) 08/01/20 15:20 Urine Nitrite NEG (NEG) 08/01/20 15:20 Ur Leukocyte Esterase NEG (NEG) 08/01/20 15:20 Digoxin < 0.3 ng/mL (0.8-2.0) L 08/01/20 10:45 Progress Note: A/P (1) Small cell carcinoma of lung Status: Acute Assessment and plan: 1. This is a pleasant 84-year-old gentleman with extensive stage small cell lung cancer, PDL1 0. He had a large left upper lobe mass with extensive mediastinal, hilar lymphadenopathy as well as an active focus of metastatic disease in the spleen. PET scan was performed at [facility], all of these lesions are intensely PET avid with SUV ranging from 12-32. MRI brain on 05/08/2020 with contrast was negative for occult brain metastasis. Patient started palliative chemotherapy with Carboplatinum AUC 5+ etoposide and atezolizumab on 05/09/2020. After 3 cycles he had decrease in PET activity in the left upper lobe mass but increase in size of right upper lobe opacity. He therefore saw Dr. Carbajal who did bronchoscopy and biopsy. On 07/20/2020 he underwent bronchoscopy and biopsies of lymph node stations 7 which revealed positivity for malignancy consistent with small cell carcinoma. On bronchoscopy, right upper lobe bronchus was obstructed with malignant looking tissue, samples were obtained. Right upper lobe bronchus biopsy showed inflamed bronchial tissue, no malignancy identified. Clinically he appears to be doing well. Proceed with cycle 6 today which is single agent atezolizumab. Repeat scan in September after cycle 7. - Time Spent With Patient Total time spent is greater than 50% in coordination of care (as documented) at patient's floor/unit and/or counseling patient: 15 - 24 minutes
[2020-08-22] MEDS: Heparin Sodium,Porcine Flush 500 UNIT/5 ML SYRINGE IVFLUSH (13:15)
--- NOTE | 2020-09-05 17:04 | MHC.HEMONC ---
PA FOR ZEPZELCA ( LURBINECTEDIN) NO REQUIRED. Medication will be covered under buy and bill, through medicare part b and supplement plan which should be covered under her medical benefits. Please send orders to pharmacy
--- NOTE | 2020-09-05 17:08 | MHC.HEMONC ---
INSRVICE FOR ZEPZELCA ( LURBINECTEDIN) REQUESTED THRU [place]. WAITING to hear back from drug rep
[2020-09-12 11:11] VITALS: BMI 28.1
[2020-09-12 11:12] VITALS: BP 136/58; PULSE 95; RESP 20; TEMP 36.9; O2SAT 95
--- NOTE | 2020-09-12 16:48 | MHC.HEMONC ---
Pt here with his son for chemo teach (new [facility] protocol with [facility]). I gave them information that was received from Drug [employer] and pt education teaching re: common side effects per same Rep. I am awaiting brochures to be delivered from Company. Pt is aware of common side effects of chemo from previous treatments. He did quite well with treatment in past.
[2020-09-18 10:32] VITALS: BMI 27.8
[2020-09-18 10:33] VITALS: BP 125/60; PULSE 84; RESP 18; TEMP 36.6; O2SAT 96
[2020-09-18 10:56] LABS: MANUAL DIFF FLAG NO
[2020-09-18 11:04] LABS: Basophils Absolute Auto 0.1 X10*3/uL (0.0-0.2); Basophils Percent Auto 0.7 % (0-2); Eosinophils Absolute Auto 0.8 X10*3/uL (0.0-0.4); Eosinophils Percent Auto 10.2 % (0-4); Hematocrit 33.5 % (42-52); Hemoglobin 10.5 g/dl (14.0-18.0); Imm Gran Abs Auto 0.02 X10*3/uL (0.00-0.03); Imm Gran Pct Auto 0.3 % (0.0-0.4); Lymphocytes Absolute Auto 1.5 X10*3/uL (1.2-4.9); Lymphocytes Percent Auto 20.3 % (20-40); Mean Corpuscular HGB Conc 31.3 g/dl (31.0-36.0); Mean Corpuscular Hemoglobin 27.9 pg (27.0-33.0); Mean Corpuscular Volume 88.9 fL (80-98); Mean Platelet Volume 8.5 fL (9.4-12.4); Monocytes Absolute Auto 0.6 X10*3/uL (0.1-1.2); Monocytes Percent Auto 8.6 % (2-11); Neutrophils Absolute Auto 4.5 X10*3/uL (2.0-8.3); Neutrophils Percent Auto 59.9 % (45-73); Platelet Count 236 X10*3/uL (160-400); Red Blood Count 3.77 X10*6/uL (4.60-5.80); White Blood Count 7.5 X10*3/uL (4.8-10.8)
[2020-09-18 11:25] LABS: Alanine Aminotransferase 8 U/L (0-40); Albumin Level 3.2 g/dL (3.5-5.0); Alkaline Phosphatase 67 U/L (39-117); Anion Gap 11 (12-20); Aspartate Amino Transferase 12 U/L (5-37); Bilirubin Total 0.4 mg/dL (0.0-1.0); Blood Urea Nitrogen 13 mg/dL (9-16); Calcium 8.7 mg/dL (8.4-10.2); Carbon Dioxide 27 mmol/L (22-29); Chloride 101 mmol/L (96-108); Creatinine Clr Calc Pharmacy 69.9; Estimated Glomerular Filt Rate > 60; Glucose Random 107 mg/dL (60-115); Magnesium 1.9 mg/dL (1.6-2.6); Potassium 3.4 mmol/l (3.3-5.1); Sodium 136 mmol/L (135-145)
[2020-09-18] MEDS: ondansetron HCL/NS 16 MG/50 ML PIGGYBACK 200 MG IV (11:39)
[2020-09-18] MEDS: Famotidine 20 MG TABLET PO (11:39)
[2020-09-18] MEDS: dexAMETHasone sod phosphate/NS 12 MG/50 ML PIGGYBACK 200 MG IV (11:58)
[2020-09-18] MEDS: Fosaprepitant Dimeglumine 150 MG in 0.9 % Sodium Chloride 145 ML 300 MG IV (13:00)
[2020-09-18 15:06] VITALS: BP 108/54; PULSE 78
--- NOTE | 2020-09-18 16:53 | MHC.HEMONC ---
Pt here for his first infusion of ZEPZELCA. Labs reviewed and WNL. Pt got EMEND and other pre-meds. He has Dex ordered for at home next two days and Ondansetron if needed. he would like his Neulasta to be on Day #2 vs. OnBody. Appt scheduled for tomorrow.
[2020-09-19 14:56] VITALS: BP 118/70; PULSE 71; RESP 18; TEMP 36.2; O2SAT 98
--- NOTE | 2020-09-19 15:10 | MHC.HEMONC ---
Did well last night following chemo. He is here for Neulasta. He is taking Dex a/o. Return next week for labs.
[2020-09-25 10:35] LABS: Eosinophils Absolute Auto 0.1 X10*3/uL (0.0-0.4); Eosinophils Percent Auto 4.5 % (0-4); Hematocrit 33.9 % (42-52); Hemoglobin 10.8 g/dl (14.0-18.0); Imm Gran Abs Auto 0.01 X10*3/uL (0.00-0.03); Imm Gran Pct Auto 0.9 % (0.0-0.4); Lymphocytes Percent Auto 92.7 % (20-40); MANUAL DIFF FLAG SCAN; Mean Corpuscular HGB Conc 31.9 g/dl (31.0-36.0); Mean Corpuscular Hemoglobin 27.6 pg (27.0-33.0); Mean Corpuscular Volume 86.7 fL (80-98); Mean Platelet Volume 9.7 fL (9.4-12.4); Monocytes Percent Auto 0.9 % (2-11); Red Blood Count 3.91 X10*6/uL (4.60-5.80); Red Cell Distribution Width 14.8 % (11.0-16.0); SCAN SMEAR FLAG 1
[2020-09-25 10:37] LABS: Platelet Count 45 X10*3/uL (160-400); White Blood Count 1.1 X10*3/uL (4.8-10.8)
[2020-09-25 10:53] LABS: Albumin Level 3.1 g/dL (3.5-5.0); Alkaline Phosphatase 69 U/L (39-117); Anion Gap 13 (12-20); Bilirubin Total 1.4 mg/dL (0.0-1.0); Calcium 8.3 mg/dL (8.4-10.2); Carbon Dioxide 25 mmol/L (22-29); Chloride 102 mmol/L (96-108); Creatinine Clr Calc Pharmacy 67.5; Estimated Glomerular Filt Rate > 60; Glucose Random 138 mg/dL (60-115); Potassium 3.8 mmol/l (3.3-5.1); Sodium 136 mmol/L (135-145); Total Protein 7.5 g/dL (6.5-8.0)
[2020-09-25 11:05] LABS: Alanine Aminotransferase 29 U/L (0-40); Aspartate Amino Transferase 23 U/L (5-37); Blood Urea Nitrogen 23 mg/dL (9-16)
[2020-09-25 11:24] LABS: Digoxin 0.8 ng/mL (0.8-2.0)
[2020-09-25 11:38] LABS: SLIDE REVIEW VERIFIED
--- NOTE | 2020-09-25 14:05 | MHC.HEMONC ---
WBC-1.1, ANC 0 Dr. Culver made aware, patient called spoke with daughter educated on neutropenic precautions. Patient educated on frequent handpicking, wearing a mask when leaving the house, limit visitors or have visitors wear a mask.Patient daughter educated to call office if he develops fever > 100.4. Follow up booked 10/03/20.
--- NOTE | 2020-09-26 11:10 | MHC.HEMONC ---
Call from pt dtr [place] stating pt having severe leg pain since last night. Per Dr Culver - try giving Tylenol and make sure he is not febrile as he was neutropenic yesterday. He does not have fevers per dtr. 15 min later pt dtr called us back to say he was on his way to ER by ambulance as leg pain was worsening and causing his breathing to be labored. Dr Culver informed.
== END 2020-09-26 | disposition home or self-care (01) ==
LOC: HO.ONC 10:00
PROVIDERS: Nurse Practitioner Family; PCP Internal Medicine; Visit Provider Internal Medicine
DX: Z51.11 Encounter for antineoplastic chemotherapy (principal); C34.90 Malignant neoplasm of unspecified part of unspecified bronchus or lung; I48.91 Unspecified atrial fibrillation; Z79.899 Other long term (current) drug therapy; Z76.89 Persons encountering health services in other specified circumstances
CPT/HCPCS: 36415; 80053; 80162; 81003; 82378; 83735; 85025; 96365; 96367; 96372; 96374; 96375; 96413; 96415; 96417; 99204; 99211; 99214; J1100; J1453; J1642; J2405; J2505; J9022; J9045; J9181; J9999; Q0163

== ENCOUNTER 2020-09-26 11:04 | Inpatient (IN) | payer MEDICARE, SELFPAY ==
[2020-09-26] VITALS (15 sets, daily range): BP systolic 96–152; BP diastolic 35–83; PULSE 105–158; RESP 15–23; TEMP 36.2–40.1; O2SAT 90–99; BMI 26.8
--- NOTE | 2020-09-26 11:10 | PC.NURSE ---
pt's daughter gin ([phone], [facility]) [place] [facility] [place] she was updated on pt's status gin states that pt is on a new chemo drug called zepzelca and he has stage iv small cell lung cancer and that his last wbc was 1.1, aware.
--- NOTE | 2020-09-26 11:14 | ED_ITS ---
HPI - Extremity Problem General Chief complaint: Extremity Problem Stated complaint: CHRONIC LEFT LEG PAIN Time Seen by Provider: 09/26/20 11:13 Source: patient, EMS and old records reviewed Mode of arrival: EMS Limitations: other (limited, can't you look up documents for these questions. ) History of Present Illness MD Complaint: extremity pain Onset (ago): month(s) (2) Pain Consistency: constant Location: left and lower extremity Quality: aching Radiation: distal Relieving factors: nothing Exacerbating factors: range of motion and walking Associated symptoms: denies other symptoms Context: other (has lung cancer undergoing chemo) Related Data Home Medications Medication Instructions Recorded Confirmed ferrous sulfate 324 mg PO BID 07/11/20 09/26/20 ondansetron 4 mg PO Q6H PRN 09/26/20 09/26/20 Previous Rx's Medication Instructions Recorded metoprolol succinate 25 mg 75 mg PO DAILY 30 Days #90 tab 08/11/20 tablet,extended release 24 hr digoxin 250 mcg (0.25 mg) tablet 250 mcg PO DAILY 30 Days #30 tab 08/30/20 dexamethasone 4 mg PO BID #60 tab 09/18/20 Allergies Allergy/AdvReac Type Severity Reaction Status Date / Time No Known Allergies Allergy Verified 07/18/20 11:06 [No Known Allergies*] Review of Systems Review of Systems: Constitutional : No Weight loss, No Fever, No Chills, No Fatigue, No Malaise ENT/Mouth : No sore throat, No Rhinorrhea Eyes: No Eye Pain, No Swelling, No Redness Cardiovascular : No Chest Pain, No SOB, No Dyspnea on Exertion, No Orthopnea, No Edema, No Palpitations Respiratory : No Cough, No Sputum, No Wheezing Gastrointestinal : No Nausea, No Vomiting, No Diarrhea, No Constipation, pos abdominal Pain, No Hematochezia, No Melena Genitourinary : No Dysuria, No Urinary Frequency, No Hematuria, positive retention Musculoskeletal : pos joint pain, No Myalgias, No Joint Swelling Skin : No Skin Lesions, No rash Neuro : No Weakness, No Numbness, No Dizziness, No Headache Psych : No Anxiety/Panic, No Depression All other systems reviewed and are negative PMFSH Past Medical History Attestation statement: The following information was validated with the patient. Medical History Anemia Atrial fibrillation Small cell lung cancer Family History Family History Father Heart attack Other Family hx of ALS (amyotrophic lateral sclerosis) Social History Social History Smoking Status: Never smoker Use of substances other than those prescribed or required for medical reasons: No Advance Directives: No Advance Directives Information Provided: Yes Physical Exam Vital Signs: Vital Signs: Last Vital Signs Temp 102.5 F H 09/26/20 15:35 Pulse 105 H 09/26/20 16:12 Resp 23 H 09/26/20 16:12 BP 112/41 L 09/26/20 16:12 Pulse Ox 97 09/26/20 16:12 Body Mass Index 26.8 Appearance: Alert. Oriented X3. moderate acute distress. slightly uncooperative Eyes: Pupils equal, round and reactive to light. ENT: Pharynx normal. Neck: Normal inspection. Neck supple. CVS: irregular tachycardic heart rate and rhythm. Pulses 1+ bilateral DP Respiratory: No respiratory distress. Breath sounds decreased at bases Abdomen: Soft and non-tender. Skin: Skin warm and dry. pale skin color. Normal skin turgor. Extremities: No lower extremity edema. No calf ttp ttp L hip, warm foot, 2+ DP, no discoloration Neuro: Oriented X 3. No motor deficit. No sensory deficit. Course Course Course Narrative: IV dilt for afib with RVR - 5mg CTA abd aorta with run off possible arterial occlusion a possibility I reviewed notes and there is no mention of LLE pain so this could be new pateint now febrile, given tylenol likely will help HR, added cefepime given chemo use WBC 1.1 on 09/25, ANC 0 at that time, planned admit, 1 L of NS for 2.9 lactic acidosis repeat diltiazem 5mg for HR in 170s, patient is not a candidate for AC therapy given plts 19k, head CT ordered given he seems slightly confused at times to r/o ICH, dilt gtt ordered as well maxed out on dilt at this time if no response will add on digoxin no MOLST form filled out, daughter would think he would not be a full code - patient is confused I do not think he can have end of life discussions lactic acid increased added 1.5L of NS to receive 30cc/kg bolus likely related to rigors and fever patient finally HR down looks like sinus tach patient asking for pain medications for his L hip - IV fentanyl repeat at this time, seems more comfortable, daughter at bedside wants him to be DNR/DNI knows how serious his illness is right now MDM - Extremity (Nontraumatic) MDM Narrative Medical decision making narrative: 85 yo male with LLE pain x 2 months he states no one listens to him - he has pulses intact, denies trauma, I see no record of c/o pain in the past will need labs, CT scan of abdomen and xray of L hip, IV morphine for pain, dispo per results and findigns, his foot is warm but given afib and no AC therapy due to hemoptysis acute arterial occlusion needs to be r/o with CTA, just underwent chemo as well will need to evaluate for infectious causes of pain (has no cellulitis) Lab Data Result diagrams: 09/26/20 11:46 09/26/20 11:46 Labs: Lab Results 09/26/20 09/26/20 09/26/20 Range/Units 11:46 11:46 11:46 WBC 0.3 L* (4.8-10.8) X10*3/uL RBC 3.53 L (4.60-5.80) X10*6/uL Hgb 9.6 L (14.0-18.0) g/dl Hct 29.1 L (42-52) % MCV 82.4 (80-98) fL MCH 27.2 (27.0-33.0) pg MCHC 33.0 (31.0-36.0) g/dl RDW 14.7 (11.0-16.0) % Plt Count 22 L D (160-400) X10*3/uL MPV 9.3 L (9.4-12.4) fL Immature Gran % (Auto) Cancelled Neut % (Auto) Cancelled Lymph % (Auto) Cancelled [place] % (Auto) Cancelled Eos % (Auto) Cancelled Baso % (Auto) Cancelled Lymph # (Auto) Cancelled [place] # (Auto) Cancelled Eos # (Auto) Cancelled Baso # (Auto) Cancelled Abs Immat Gran (auto) Cancelled Absolute Neuts (auto) Cancelled Absolute Nucleated RBC 0.000 (0.0-0.012) X10*3/uL Nucleated RBC % (auto) 0.0 (0.0-0.2) /100WBC Neutrophils % (Manual) 0 L (45-73) % Band Neutrophils % 0 L (3-5) % Lymphocytes % (Manual) 100 H (20-40) % Abs Neuts (Manual) Not Reportable Lymphocytes # (Manual) 0.3 L (0.6-4.8) X10*3/uL Platelet Estimate DECREASED (NORMAL) Plt Morphology Comment NORMAL RBC Morphology NOTED Ovalocytes 1+ PT 16.1 H (10.8-13.0) SEC INR 1.4 H (0.9-1.1) APTT 29.3 (24.1-38.0) SEC Sodium 132 L (135-145) mmol/L Potassium 3.4 (3.3-5.1) mmol/l Chloride 101 (96-108) mmol/L Carbon Dioxide 21 L (22-29) mmol/L Anion Gap 13 (12-20) BUN 20 H (9-16) mg/dL Creatinine 0.95 (0.5-1.4) mg/dL Estim Creat Clear Calc 57.0 Estimated GFR > 60 Random Glucose 155 H (60-115) mg/dL Lactic Acid (0.5-2.0) mmol/L Lactic Acid Fup @ 2Hr (0.5-2.0) mmol/L Calcium 8.2 L (8.4-10.2) mg/dL Magnesium 1.6 (1.6-2.6) mg/dL Total Bilirubin 1.8 H (0.0-1.0) mg/dL Direct Bilirubin 1.1 H (0.0-0.5) mg/dL AST 25 (5-37) U/L ALT 26 (0-40) U/L Alkaline Phosphatase 71 (39-117) U/L Total Creatine Kinase 904 H (38-174) U/L Troponin I High Sens (<3.5-35.0) ng/L Total Protein 7.1 (6.5-8.0) g/dL Albumin 3.1 L (3.5-5.0) g/dL Lipase 4 L (8-78) U/L Urine Color Urine Appearance Urine pH (5.0-8.0) Ur Specific [place] (1.005-1.025) Urine Protein (NEG-TRACE) MG/DL Urine Glucose (UA) (NEG) MG/DL Urine Ketones (NEG) MG/DL Urine Blood (NEG) Urine Nitrite (NEG) Ur Leukocyte Esterase (NEG) Urine RBC (0) /HPF Urine WBC (0-4) /HPF Ur Squamous Epith Cells /LPF Urine Bacteria /LPF Stool Occult Blood (NEG) Digoxin (0.8-2.0) ng/mL Coronavirus (PCR) (Negative) Influenza Type A (PCR) (Negative) Influenza Type B (PCR) (Negative) RSV RNA Qual (PCR) (Negative) Blood Type Antibody Screen 09/26/20 09/26/20 09/26/20 Range/Units 11:46 11:46 11:46 WBC (4.8-10.8) X10*3/uL RBC (4.60-5.80) X10*6/uL Hgb (14.0-18.0) g/dl Hct (42-52) % MCV (80-98) fL MCH (27.0-33.0) pg MCHC (31.0-36.0) g/dl RDW (11.0-16.0) % Plt Count (160-400) X10*3/uL MPV (9.4-12.4) fL Immature Gran % (Auto) Neut % (Auto) Lymph % (Auto) [place] % (Auto) Eos % (Auto) Baso % (Auto) Lymph # (Auto) [place] # (Auto) Eos # (Auto) Baso # (Auto) Abs Immat Gran (auto) Absolute Neuts (auto) Absolute Nucleated RBC (0.0-0.012) X10*3/uL Nucleated RBC % (auto) (0.0-0.2) /100WBC Neutrophils % (Manual) (45-73) % Band Neutrophils % (3-5) % Lymphocytes % (Manual) (20-40) % Abs Neuts (Manual) Lymphocytes # (Manual) (0.6-4.8) X10*3/uL Platelet Estimate (NORMAL) Plt Morphology Comment RBC Morphology Ovalocytes PT (10.8-13.0) SEC INR (0.9-1.1) APTT (24.1-38.0) SEC Sodium (135-145) mmol/L Potassium (3.3-5.1) mmol/l Chloride (96-108) mmol/L Carbon Dioxide (22-29) mmol/L Anion Gap (12-20) BUN (9-16) mg/dL Creatinine (0.5-1.4) mg/dL Estim Creat Clear Calc Estimated GFR Random Glucose (60-115) mg/dL Lactic Acid 2.9 H* (0.5-2.0) mmol/L Lactic Acid Fup @ 2Hr (0.5-2.0) mmol/L Calcium (8.4-10.2) mg/dL Magnesium (1.6-2.6) mg/dL Total Bilirubin (0.0-1.0) mg/dL Direct Bilirubin (0.0-0.5) mg/dL AST (5-37) U/L ALT (0-40) U/L Alkaline Phosphatase (39-117) U/L Total Creatine Kinase (38-174) U/L Troponin I High Sens 9.9 (<3.5-35.0) ng/L Total Protein (6.5-8.0) g/dL Albumin (3.5-5.0) g/dL Lipase (8-78) U/L Urine Color Urine Appearance Urine pH (5.0-8.0) Ur Specific [place] (1.005-1.025) Urine Protein (NEG-TRACE) MG/DL Urine Glucose (UA) (NEG) MG/DL Urine Ketones (NEG) MG/DL Urine Blood (NEG) Urine Nitrite (NEG) Ur Leukocyte Esterase (NEG) Urine RBC (0) /HPF Urine WBC (0-4) /HPF Ur Squamous Epith Cells /LPF Urine Bacteria /LPF Stool Occult Blood (NEG) Digoxin 0.8 (0.8-2.0) ng/mL Coronavirus (PCR) (Negative) Influenza Type A (PCR) (Negative) Influenza Type B (PCR) (Negative) RSV RNA Qual (PCR) (Negative) Blood Type Antibody Screen 09/26/20 09/26/20 09/26/20 Range/Units 11:54 12:34 14:18 WBC (4.8-10.8) X10*3/uL RBC (4.60-5.80) X10*6/uL Hgb (14.0-18.0) g/dl Hct (42-52) % MCV (80-98) fL MCH (27.0-33.0) pg MCHC (31.0-36.0) g/dl RDW (11.0-16.0) % Plt Count (160-400) X10*3/uL MPV (9.4-12.4) fL Immature Gran % (Auto) Neut % (Auto) Lymph % (Auto) [place] % (Auto) Eos % (Auto) Baso % (Auto) Lymph # (Auto) [place] # (Auto) Eos # (Auto) Baso # (Auto) Abs Immat Gran (auto) Absolute Neuts (auto) Absolute Nucleated RBC (0.0-0.012) X10*3/uL Nucleated RBC % (auto) (0.0-0.2) /100WBC Neutrophils % (Manual) (45-73) % Band Neutrophils % (3-5) % Lymphocytes % (Manual) (20-40) % Abs Neuts (Manual) Lymphocytes # (Manual) (0.6-4.8) X10*3/uL Platelet Estimate (NORMAL) Plt Morphology Comment RBC Morphology Ovalocytes PT (10.8-13.0) SEC INR (0.9-1.1) APTT (24.1-38.0) SEC Sodium (135-145) mmol/L Potassium (3.3-5.1) mmol/l Chloride (96-108) mmol/L Carbon Dioxide (22-29) mmol/L Anion Gap (12-20) BUN (9-16) mg/dL Creatinine (0.5-1.4) mg/dL Estim Creat Clear Calc Estimated GFR Random Glucose (60-115) mg/dL Lactic Acid (0.5-2.0) mmol/L Lactic Acid Fup @ 2Hr (0.5-2.0) mmol/L Calcium (8.4-10.2) mg/dL Magnesium (1.6-2.6) mg/dL Total Bilirubin (0.0-1.0) mg/dL Direct Bilirubin (0.0-0.5) mg/dL AST (5-37) U/L ALT (0-40) U/L Alkaline Phosphatase (39-117) U/L Total Creatine Kinase (38-174) U/L Troponin I High Sens (<3.5-35.0) ng/L Total Protein (6.5-8.0) g/dL Albumin (3.5-5.0) g/dL Lipase (8-78) U/L Urine Color YELLOW Urine Appearance CLEAR Urine pH 6.5 (5.0-8.0) Ur Specific [place] 1.020 (1.005-1.025) Urine Protein 2+ H (NEG-TRACE) MG/DL Urine Glucose (UA) NEG (NEG) MG/DL Urine Ketones NEG (NEG) MG/DL Urine Blood 3+ H (NEG) Urine Nitrite NEG (NEG) Ur Leukocyte Esterase NEG (NEG) Urine RBC 1-4 (0) /HPF Urine WBC 1-4 (0-4) /HPF Ur Squamous Epith Cells TRACE /LPF Urine Bacteria TRACE /LPF Stool Occult Blood NEG (NEG) Digoxin (0.8-2.0) ng/mL Coronavirus (PCR) NEGATIVE (Negative) Influenza Type A (PCR) NEGATIVE (Negative) Influenza Type B (PCR) NEGATIVE (Negative) RSV RNA Qual (PCR) NEGATIVE (Negative) Blood Type Antibody Screen 09/26/20 09/26/20 Range/Units 14:18 14:18 WBC (4.8-10.8) X10*3/uL RBC (4.60-5.80) X10*6/uL Hgb (14.0-18.0) g/dl Hct (42-52) % MCV (80-98) fL MCH (27.0-33.0) pg MCHC (31.0-36.0) g/dl RDW (11.0-16.0) % Plt Count (160-400) X10*3/uL MPV (9.4-12.4) fL Immature Gran % (Auto) Neut % (Auto) Lymph % (Auto) [place] % (Auto) Eos % (Auto) Baso % (Auto) Lymph # (Auto) [place] # (Auto) Eos # (Auto) Baso # (Auto) Abs Immat Gran (auto) Absolute Neuts (auto) Absolute Nucleated RBC (0.0-0.012) X10*3/uL Nucleated RBC % (auto) (0.0-0.2) /100WBC Neutrophils % (Manual) (45-73) % Band Neutrophils % (3-5) % Lymphocytes % (Manual) (20-40) % Abs Neuts (Manual) Lymphocytes # (Manual) (0.6-4.8) X10*3/uL Platelet Estimate (NORMAL) Plt Morphology Comment RBC Morphology Ovalocytes PT (10.8-13.0) SEC INR (0.9-1.1) APTT (24.1-38.0) SEC Sodium (135-145) mmol/L Potassium (3.3-5.1) mmol/l Chloride (96-108) mmol/L Carbon Dioxide (22-29) mmol/L Anion Gap (12-20) BUN (9-16) mg/dL Creatinine (0.5-1.4) mg/dL Estim Creat Clear Calc Estimated GFR Random Glucose (60-115) mg/dL Lactic Acid (0.5-2.0) mmol/L Lactic Acid Fup @ 2Hr 6.5 H* (0.5-2.0) mmol/L Calcium (8.4-10.2) mg/dL Magnesium (1.6-2.6) mg/dL Total Bilirubin (0.0-1.0) mg/dL Direct Bilirubin (0.0-0.5) mg/dL AST (5-37) U/L ALT (0-40) U/L Alkaline Phosphatase (39-117) U/L Total Creatine Kinase (38-174) U/L Troponin I High Sens (<3.5-35.0) ng/L Total Protein (6.5-8.0) g/dL Albumin (3.5-5.0) g/dL Lipase (8-78) U/L Urine Color Urine Appearance Urine pH (5.0-8.0) Ur Specific [place] (1.005-1.025) Urine Protein (NEG-TRACE) MG/DL Urine Glucose (UA) (NEG) MG/DL Urine Ketones (NEG) MG/DL Urine Blood (NEG) Urine Nitrite (NEG) Ur Leukocyte Esterase (NEG) Urine RBC (0) /HPF Urine WBC (0-4) /HPF Ur Squamous Epith Cells /LPF Urine Bacteria /LPF Stool Occult Blood (NEG) Digoxin (0.8-2.0) ng/mL Coronavirus (PCR) (Negative) Influenza Type A (PCR) (Negative) Influenza Type B (PCR) (Negative) RSV RNA Qual (PCR) (Negative) Blood Type O Positive Antibody Screen NEGATIVE ECG Data Attestation EKG: I personally reviewed and interpreted this ECG as follows: ECG interpretation date: 09/26/20 ECG interpretation time: 11:44 Interpretation: Rate: 124 Rhythm: afib with RVR Nursery: left Normal QRS complex. ST T wave : ST seg depression V3-V6, T wave inversion I and aVL qTC: normal prior studies: change from prior The study has been interpreted contemporaneously by me. . Rate: 111 Rhythm: afib with RVR Nursery: normal Normal QRS complex. ST T wave : nonspecific, ST seg improved qTC: normal prior studies: improved The study has been interpreted contemporaneously by me. . Critical Care Time Critical Care Time Critical Care Time: Yes Total Critical Care Time: 90 Attestation: IVF, antibiotics, repeat IV pain medications, discussion with family. I attest to this time spent taking care of the patient Discharge Plan Discharge Clinical Impression: Neutropenic fever, Atrial fibrillation with RVR, Acidosis, lactic Patient Disposition: Admitted As Inpatient
--- NOTE | 2020-09-26 11:18 | ECG_ITS ---
Test Reason : LEG PAIN Blood Pressure : / mmHG Vent. Rate : 124 BPM Atrial Rate : 138 BPM P-R Int : 000 ms QRS Dur : 076 ms QT Int : 304 ms P-R-T Axes : 000 008 111 degrees QTc Int : 436 ms Atrial fibrillation with rapid ventricular response Marked ST abnormality, possible anterior subendocardial injury Abnormal ECG When compared with ECG of 04-JUL-2020 11:42, ST more depressed Anterior leads T wave inversion now evident in Anterolateral leads Referred By: Elizabeth Muñoz Electronically Signed By:ROBINSON NAQVI MD
--- NOTE | 2020-09-26 11:24 | PC.NURSE ---
pt arrived to ed with urinary incontinence and small bowel incontinence (dark tarry stool) aware.
--- NOTE | 2020-09-26 11:41 | CT_ITS ---
EXAMINATION: CT ANGIOGRAPHY LEGS WITH RUNOFF CLINICAL INFORMATION: Left lower extremity pain. History of atrial fibrillation. Evaluate for vessel occlusion. COMPARISON: Previous chest CT August 2020 TECHNIQUE: Axial images through the abdomen and pelvis and bilateral lower extremities following IV contrast. Patient received 100 mL Omnipaque 350 intravenous contrast. Sagittal coronal and mid reconstructions were obtained. Patient dose 5 1 9 mg/cm. This CT examination was performed using dose optimization techniques as appropriate, variously including the following: *Automated exposure control *Adjustment of mA and/or kV according to patient size (this includes techniques or standardized protocols for targeted exams where dose is matched to indication/reason for exam; i.e. extremities or head) *Use of iterative reconstruction technique DLP: 519 mGy-cm FINDINGS: Vascular: There is evidence of severe atherosclerotic disease with vessel wall calcification. 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 Remainder of the abdominal aorta is normal in caliber. There is evidence of diffuse atherosclerotic disease of the common iliac arteries. The bilateral common iliac arteries appear patent without significant stenosis. There are mild segmental stenoses of the bilateral external iliac arteries. The bilateral internal iliac arteries are patent. Right: There is a mild stenosis of the right common femoral artery. The right profunda is patent. The right proximal superficial femoral artery is patent. There is segmental stenoses of the mid and distal superficial femoral artery. The distal superficial femoral and femoral artery is occluded. There is reconstitution of the above knee popliteal artery. The popliteal artery is diffusely small in caliber but patent. Trifurcation vessels are heavily calcified. There is evidence of moderate to severe segmental stenosis of the trifurcation vessels. The posterior tibial artery crosses the ankle joint is into the foot. The anterior tibial artery appears to occludes above the ankle. Left: There are are mild stenoses of the left common femoral artery. The left profunda is patent. The left proximal superficial femoral artery is patent. There is a severe segmental stenoses of the mid and distal superficial femoral artery. The left above and below-knee popliteal arteries are small in caliber but patent. The trifurcation vessels are heavily calcified. It is difficult to evaluate patency of the vessels. There is are segmental stenoses of the trifurcation vessels. Trifurcation vessels appear severely diseased. The anterior tibial artery crosses the ankle joint is a patent dorsalis pedis artery. The posterior tibial artery appears to occlude above the ankle. There is direct origin of the left gastric artery from the aorta. There is a severe stenosis at the origin of the celiac axis. There is a mild stenosis at the origin of the SMA. The JAYE appears patent but severely diseased. There are single patent renal arteries. Nonvascular: There is a partially visualized mass in the central left lung involving the left upper and left lower lobes. This measures at least 5 x 4.2 cm. This appears decreased is not appreciated chest CT scans. There is are small bilateral pleural effusions, left greater than right. There are low-attenuation liver lesions that are stable. The gallbladder is unremarkable. There is no biliary duct dilatation. There is a low-attenuation lesion in the spleen that is stable. The pancreas is unremarkable. The adrenal glands are unremarkable. The kidneys are unremarkable. The bladder wall may be slightly thickened. No stone or mass is seen. The prostate gland is slightly enlarged and protrudes into the base of the bladder. The prostate gland measures 4 x 4.5 cm in AP and transverse dimension. There is diffuse wall thickening of the distal colon and rectum suggestive of proctocolitis. Small and large bowel is otherwise unremarkable. The appendix is unremarkable. The stomach is unremarkable. No ascites or adenopathy is seen. No hernia is seen. There are degenerative changes of the spine and hip joints. CT/CT angio abd aorta runoff IMPRESSION: Severe diffuse atherosclerotic disease with heavy vessel wall calcification. 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 No evidence of inflow disease. Mild right common femoral artery disease. Severe right mid and distal SFA disease and distal occlusion. Reconstituted above-knee popliteal artery. Diseased trifurcation vessels. Mild left common femoral artery disease. Severe left mid and distal superficial femoral artery segmental stenoses. Small caliber patent popliteal artery. Severe trifurcation disease. Evaluation of patency of the trifurcation vessels is difficult due to heavy vessel wall calcification and small size of the vessels. A definite embolus is not appreciated on this exam. Severe stenosis of the celiac axis and mild stenosis of the origin of the SMA. Left lung mass. Bilateral pleural effusions, left greater than right. Stable liver and splenic lesions. Marked wall thickening of the distal colon and rectum suggestive of proctocolitis. Slightly enlarged prostate gland.
--- NOTE | 2020-09-26 11:54 | PC.NURSE ---
bilateral foot palpated and dopler strong on right weak on left dopler/palpated provider aware
[2020-09-26] MEDS: dilTIAZem HCL 50 MG/10 ML VIAL IVPUSH ×2 (11:58→13:00)
[2020-09-26] MEDS: ondansetron HCL 4 MG/2 ML VIAL IVPUSH (11:58)
[2020-09-26 11:59] LABS: Mean Corpuscular Hemoglobin 27.2 pg (27.0-33.0)
[2020-09-26] MEDS: Morphine Sulfate 4 MG/ML CARTRIDGE IVPUSH (11:59)
[2020-09-26 12:01] LABS: Hematocrit 29.1 % (42-52); Hemoglobin 9.6 g/dl (14.0-18.0); Mean Corpuscular Volume 82.4 fL (80-98); Mean Platelet Volume 9.3 fL (9.4-12.4); Red Blood Count 3.53 X10*6/uL (4.60-5.80); Red Cell Distribution Width 14.7 % (11.0-16.0)
[2020-09-26 12:02] LABS: INTERNATIONAL NORM RATIO 1.4 (0.9-1.1); Prothrombin Time 16.1 SEC (10.8-13.0)
[2020-09-26 12:05] LABS: Partial Thromboplastin Time 29.3 SEC (24.1-38.0)
[2020-09-26 12:10] LABS: OBS Int Ctl Valid YES; OBS1 NEG (NEG)
[2020-09-26 12:14] LABS: Lactic Acid 2.9 mmol/L (0.5-2.0)
--- NOTE | 2020-09-26 12:14 | XR_ITS ---
EXAMINATION: XR CHEST CLINICAL INFORMATION: Fever. History lung cancer. COMPARISON: Chest radiographs 05/23/2020, 04/17/2020, CT chest with contrast 08/30/2020. TECHNIQUE: Portable upright AP x2 views of the chest was obtained. FINDINGS: Left perihilar mass continues to decreased in size. Again, there is volume loss right upper lobe with elevation minor fissure and patchy airspace opacities right upper lobe, similar to CT exam. Tunneled port again seen, tip likely at distal SVC. There are other monitoring lines overlying the patient and obscuring the left catheter tip. The heart is normal in size. The vascularity is normal. No effusion. No acute bony abnormality. XR/XR chest 1V IMPRESSION: 1. Left perihilar mass decreased in size. 2. Patchy airspace opacity right upper lobe with volume loss similar to CT 08/30/2020.
[2020-09-26 12:17] LABS: Alanine Aminotransferase 26 U/L (0-40); Albumin Level 3.1 g/dL (3.5-5.0); Alkaline Phosphatase 71 U/L (39-117); Anion Gap 13 (12-20); Aspartate Amino Transferase 25 U/L (5-37); Bilirubin Direct 1.1 mg/dL (0.0-0.5); Bilirubin Total 1.8 mg/dL (0.0-1.0); Blood Urea Nitrogen 20 mg/dL (9-16); Calcium 8.2 mg/dL (8.4-10.2); Carbon Dioxide 21 mmol/L (22-29); Chloride 101 mmol/L (96-108); Estimated Glomerular Filt Rate > 60; Glucose Random 155 mg/dL (60-115); Lipase 4 U/L (8-78); Magnesium 1.6 mg/dL (1.6-2.6); Potassium 3.4 mmol/l (3.3-5.1); Sodium 132 mmol/L (135-145); Total Protein 7.1 g/dL (6.5-8.0)
[2020-09-26] MEDS: cefEPime HCl 1 GM in 0.9 % Sodium Chloride 50 ML IV (12:19)
[2020-09-26 12:23] LABS: Platelet Count 22 X10*3/uL (160-400); Troponin-I High Sensitivity 9.9 ng/L (<3.5-35.0); WBC ABN SCTR FOR CBC 1
[2020-09-26] MEDS: 0.9 % Sodium Chloride 1,000 ML 999 ML IVCONT ×2 (12:24→15:34)
[2020-09-26 12:30] LABS: Digoxin 0.8 ng/mL (0.8-2.0)
[2020-09-26 12:34] LABS: Lymphocytes Percent Manual 100 % (20-40); Neutrophils Percent Manual 0 % (45-73)
[2020-09-26 12:35] LABS: Band Neutrophils Percent 0 % (3-5); Platelet Estimate DECREASED (NORMAL); Platelet Morphology Comment NORMAL
[2020-09-26 12:36] LABS: Ovalocytes 1+; RBC Morphology NOTED
[2020-09-26 12:40] LABS: Lymphocytes Absolute Manual 0.3 X10*3/uL (0.6-4.8); White Blood Count 0.3 X10*3/uL (4.8-10.8)
--- NOTE | 2020-09-26 12:40 | CT_ITS ---
EXAMINATION: CT HEAD WITHOUT CONTRAST CLINICAL INFORMATION: Weakness, low platelets, and fever. COMPARISON: None TECHNIQUE: Contiguous axial imaging was performed from the skull base to vertex without intravenous administration of contrast. This CT examination was performed using dose optimization techniques as appropriate, variously including the following: *Automated exposure control *Adjustment of mA and/or kV according to patient size (this includes techniques or standardized protocols for targeted exams where dose is matched to indication/reason for exam; i.e. extremities or head) *Use of iterative reconstruction technique DLP: 739 mGy-cm FINDINGS: There is no evidence of acute intracranial hemorrhage or territorial infarction. No abnormal mass effect or midline shift is seen. Cates to white matter differentiation is well preserved. No extra-axial fluid collections are identified. The lateral ventricles are symmetrical but enlarged with mild prominence of cortical sulci. There is diffuse periventricular hypodensity in both cerebral hemispheres without mass effect. The osseous structures and soft tissues are normal. The mastoid air cells and visualized portions of the paranasal sinuses are well aerated. CT/CT head/brain wo con IMPRESSION: No acute intracranial process seen. Age-related mild cerebral volume loss and chronic small vessel ischemic changes in both cerebral hemispheres.
[2020-09-26 12:41] LABS: Glucose Urine UA NEG (NEG); Leukocyte Esterase Urine NEG (NEG); Nitrite Urine NEG (NEG); PH 6.5 (5.0-8.0); Urine Blood 3+ (NEG); Urine Ketones NEG (NEG); Urine Protein 2+ MG/DL (NEG-TRACE)
[2020-09-26 12:42] LABS: Appearance Urine CLEAR; Color Urine YELLOW
[2020-09-26 12:57] LABS: Bacteria Urine TRACE /LPF; Squamous Epithelial Cell Urine TRACE /LPF
[2020-09-26] MEDS: Acetaminophen 325 MG TABLET 650 MG PO ×2 (13:00→14:40)
[2020-09-26] MEDS: dilTIAZem HCL 125 MG in 0.9 % Sodium Chloride 100 ML 7.5 MG IVCONT (13:05)
[2020-09-26] MEDS: fentaNYL citrate/PF 100 MCG/2 ML VIAL 25 MCG IVPUSH (13:15)
[2020-09-26 13:52] LABS: Reflex Lactate? Lactic Acid Added
[2020-09-26] MEDS: iohexoL 350 MG/ML 100 ML INFUS..BTL IV (14:14)
[2020-09-26] MEDS: vancomycin HCL 1,000 MG in 0.9 % Sodium Chloride 250 ML 270 MG IV (14:31)
[2020-09-26 14:51] LABS: ~Lactic Acid-LAB USE ONLY 6.5 mmol/L (0.5-2.0)
--- NOTE | 2020-09-26 15:00 | PC.NURSE ---
Pt report taken from Yolanda SOLIS at this time. Upon entering room pt is on cooling blanket. Pt appears uncomfortable shifting from side to side, removing wires. Almost pulling out lines. Pt is afib on monitor 140 bpm. temperature 104.1. Pt bp within normal limits. Pt able to follow commands but states his legs are hurting him. Dr Muñoz called daughter to bedside at this time due to increase lactic and patient condition. Pt is on palliative care.
[2020-09-26] MEDS: 0.9 % Sodium Chloride 500 ML IV (15:01)
[2020-09-26] MEDS: metroNIDAZOLE/NS 500 MG/100 ML PIGGYBACK 100 MG IV (15:01)
[2020-09-26 15:11] LABS: Influenza A PCR NEGATIVE (Negative); Influenza B PCR NEGATIVE (Negative); Resp Syncy Virus RNA Qual PCR NEGATIVE (Negative); SARS COV2 PCR INHOUSE NEGATIVE (Negative)
[2020-09-26] MEDS: fentaNYL citrate/PF 100 MCG/2 ML VIAL 50 MCG IVPUSH (15:35)
--- NOTE | 2020-09-26 15:39 | ECG_ITS ---
Test Reason : TACHYCARDIA Blood Pressure : / mmHG Vent. Rate : 111 BPM Atrial Rate : 101 BPM P-R Int : 000 ms QRS Dur : 080 ms QT Int : 358 ms P-R-T Axes : 000 -02 068 degrees QTc Int : 486 ms Atrial fibrillation with rapid ventricular response Nonspecific ST and T wave abnormality Abnormal ECG When compared with ECG of 26-SEP-2020 11:31, ST no longer depressed in Anterolateral leads T wave inversion no longer evident in Anterolateral leads Referred By: Elizabeth Muñoz Electronically Signed By:ROBINSON NAQVI MD
--- NOTE | 2020-09-26 15:43 | PC.NURSE ---
Pt given fentantly. New IV line established due to pt accidently taking IV out with multiple shifting. Pt has 1.5 L of fluids running. Digoxin down to 5 from 15. Pt medicated with fentantyl IV. Pending hospitalist.
[2020-09-26] MEDS: LORazepam 2 MG/ML VIAL 0.5 MG IVPUSH (16:13)
[2020-09-26 16:24] LABS: Reflex Lactate? 2 Y
--- NOTE | 2020-09-26 16:33 | PC.NURSE ---
pt taken off of cooling blanket temp of 99.8.
[2020-09-26] MEDS: HYDROmorphone HCl 0.5 MG/0.5 ML SYRINGE IVPUSH (17:13)
--- NOTE | 2020-09-26 17:15 | PC.NURSE ---
family wants comfort care at this time.
--- NOTE | 2020-09-26 17:34 | PM.EVENT ---
Event Note Date of Service: 09/26/20 Event Note: Patient seen and examined independently and was present during tatum portion of E/M service. Agree with midlevel's history, physical, assessment, and plan. 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
--- NOTE | 2020-09-26 18:39 | PC.NURSE ---
pending report to floor
[2020-09-26] MEDS: HYDROmorphone HCl 1 MG/ML SYRINGE IVPUSH (18:54)
--- NOTE | 2020-09-26 19:41 | PC.NURSE ---
second attempt to give report to rn upstairs
--- NOTE | 2020-09-26 19:48 | PC.NURSE ---
pt sleeping resting with 2l nc oxygen
--- NOTE | 2020-09-27 07:08 | PM.DDS ---
Discharge Sum: Prov Provider Primary care physician: Freddie Krishnan MD Discharge Sum: Diag PCOD Cause of : 10 weeks gestation of Contributing Factors (1) Neutropenic fever: (2) Atrial fibrillation with RVR: (3) Acidosis, lactic: (4) Small cell carcinoma of lung: Discharge Sum: Summary Date and Time Date of admission: 09/26/20 17:51 Summary Details: Patient presented with septic shock and neutropenic fever in the setting of chemotherapy for diffuse small cell lung cancer. Decision was made to make patient comfort measures only. Patient was diet comfortable and peacefully. Additional Data Attending physician: David Chinchilla MD
--- NOTE | 2020-09-27 07:12 | W.MHC.ACPN ---
Advanced Care Planning Note Advanced Care Planning Note Discussed with: family member(s) Time spent (in minutes): 17 Narrative: date of service 09/26/2020 Discussed with daughter at bedside regarding patient's diagnosis of septic shock and diffuse small cell lung cancer and his grave prognosis. We discussed possibilities of sending patient home from the emergency department, however, it was unclear for would be able to manage patient's pain. Patient's daughter's goal was to make patient as comfortable as possible and to be able to remain with the patient. Decision was made to admit patient overnight with comfort measures only and if patient was stable enough to be discharged home on hospice once everything was set up the next day. Problems Discussed (1) Neutropenic fever: (2) Atrial fibrillation with RVR: (3) Acidosis, lactic: (4) Small cell carcinoma of lung:
--- NOTE | 2020-09-27 10:50 | HP_ITS ---
DATE OF SERVICE: 09/26/2020 CHIEF COMPLAINT: Pain and confusion. HISTORY OF PRESENT ILLNESS: An 85-year-old man with a history of small-cell lung cancer diagnosed in April of 2020. He has been following with Hematology and Oncology. He has been started on palliative chemotherapy, presented to the ER today with pain and confusion. Unfortunately, the patient is confused and was unable to answer any questions. His daughter was available and after some discussion, decided to make the patient comfort measures only. The patient was medicated multiple times for pain. His white blood cell count was noted to be low at 0.3, platelet count 22. Lactic acid 6.5. His coronavirus PCR was negative. Head CT showed no acute intracranial abnormality. Chest x-ray showed left perihilar mass, which is chronic. 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 The patient was given multiple doses of pain medications, cefepime and ceftriaxone. He was also found to be in atrial fibrillation with rapid ventricular response while in the ER and was started on IV diltiazem. Once the daughter decided to make the patient comfort measures only, was decided the patient will be transferred up. Stairs for supportive care only. PAST MEDICAL HISTORY: 1. Small cell lung cancer, recently diagnosed. 2. Anemia. 3. Atrial fibrillation. FAMILY HISTORY: Father had coronary artery disease status post NH. Another family member had ALS. SOCIAL HISTORY: Lives at home. According to the record, he does not use any alcohol, tobacco, or illicit drugs. ALLERGIES: NO KNOWN ALLERGIES. MEDICATIONS: 1. Dexamethasone 4 mg p.o. b.i.d. 2. Digoxin 250 mcg p.o. daily. 3. Ferrous sulfate 324 mg p.o. b.i.d. 4. Metoprolol succinate 75 mg p.o. daily. 5. Ondansetron 4 mg p.o. q.6 hours p.r.n. REVIEW OF SYSTEMS: Unable to obtain due to mental status. PHYSICAL EXAMINATION: CONSTITUTIONAL: The patient appears to be in pain, rocking back and forth in the bed, not opening eyes, appears to be confused. HEENT: Head is normocephalic, atraumatic. Eyes, pupils are PERRLA. Sclerae anicteric. Mouth and throat: Mucous membranes are intact and dry. NECK: Supple. No lymphadenopathy. No JVD noted. CHEST: Normal expansion. HEART: Irregularly irregular. ABDOMEN: Positive bowel sounds. NEURO: The patient confused, unable to really examine focal deficits due to patient's confusion. LABORATORY DATA: WBC 0.3, hemoglobin 9.6, hematocrit 29.1, and platelets 22. Sodium was 132, potassium 3.4, chloride is 101, BUN is 20, creatinine is 0.95. Lactic acid 6.5. Total CK 904, total bilirubin 1.8. ASSESSMENT AND PLAN: An 85-year-old man with a history of small-cell lung carcinoma that was diagnosed in April, has been undergoing palliative chemotherapy. He has been admitted due to uncontrollable pain, and confusion. After much discussion with the patient's daughter, she has decided to make him comfort measures only and if the patient does not pass away while hospitalized, would like to take him home on hospice. 1. Intractable pain. We will medicate for pain with regular morphine doses, scopolamine. Supportive care. 2. Atrial fibrillation, rapid ventricular response. We will continue Cardizem drip for now as patient's heart rate is quite high, which can make him more comfortable. Once heart rate seemed to be little controlled, then stop. 3. Comfort measures only. No lab draws. No unnecessary vital sign checks. We will consult Case Management for possible hospice placement if the patient survives through the night. 4. Deep vein thrombosis prophylaxis. None at this point as patient is comfort measures only. 5. Case discussed with Dr. Chinchilla. 6. OLIVER FILTER OPERATOR. SULMA Green MD JR/KRISTAL / [id number]
== END 2020-09-26 23:00 | disposition expired | DRG 871 ==
LOC: HO.ED 14:16 → HO.S3 18:02
PROVIDERS: Admitting Provider Internal Medicine; Emergency Provider Emergency Medicine; PCP Internal Medicine; Visit Provider Internal Medicine
DX: A41.9 Sepsis, unspecified organism (principal); R65.21 Severe sepsis with septic shock; E87.2 Acidosis; C80.1 Malignant (primary) neoplasm, unspecified; D70.9 Neutropenia, unspecified; R50.81 Fever presenting with conditions classified elsewhere; I48.91 Unspecified atrial fibrillation; Z20.828 Contact with and (suspected) exposure to other viral communicable diseases; Z79.899 Other long term (current) drug therapy; Z51.5 Encounter for palliative care
CPT/HCPCS: 0241U; 36415; 70450; 71045; 75635; 80048; 80076; 80162; 81001; 82272; 82550; 83605; 83690; 83735; 84484; 85007; 85025; 85027; 85610; 85730; 86850; 86900; 86901; 87040; 93005; 96361; 96365; 96367; 96375; 96376; 99285; 99291; 99292; J0692; J1170; J2060; J2270; J2405; J3010; J3370; Q9967